=== PATIENT | male | born 1980 | race Hispanic/Latino ===

== ENCOUNTER 2020-02-16 11:49 | Inpatient (IN) | payer OTHER ==
--- NOTE | 2020-02-16 12:41 | RAD ---
EXAM: Two views chest PROVIDED CLINICAL HISTORY: 2 views chest COMPARISON: None FINDINGS: Cardiac silhouette is within normal limits. Increased interstitial and minimal patchy parenchymal den sities are seen throughout the lungs bilaterally. The osseous structures have a normal appearance. IMPRESSION: Bilateral increase in interstitial and patchy parenchymal densities. Findings are worrisome for infec tious process. Interstitial asymmetric interstitial edema is a possibility. Follow-up to complete resolution is recommended.
[2020-02-16] MEDS ORDERED: cefTRIAXone\\ROCEPHIN 2 GM VIAL ONE (13:03)
[2020-02-16] MEDS ORDERED: Azithromycin 500 MG VIAL ONE (13:03)
[2020-02-16 13:18] LABS: Hemoglobin 14.7 g/dL (14.0-18.0); Mean Corpuscular HGB CONC 33.1 g/dL (32.0-36.0); Mean Corpuscular Hemoglobin 28.6 pg (27.0-31.0); Mean Corpuscular Volume 86.4 fL (78.0-98.0); Mean Platelet Volume 8.3 fL (7.4-10.4); Platelet Count 227 thou/uL (130-400); RBC Distribution Width 11.6 % (11.5-14.5); Red Blood Cell (RBC) Count 5.14 mill/uL (4.70-6.10); White Blood Cell (WBC) Count 13.4 thou/uL (4.8-10.8)
[2020-02-16 13:35] LABS: ALT (SGPT) 340 U/L (8-55); AST (SGOT) 277 U/L (5-34); Albumin 4.3 g/dL (3.5-5.0); Alkaline Phosphatase 174 U/L (40-110); Anion Gap 15 mmol/L (10-20); BUN (Urea Nitrogen) 11 mg/dL (8.9-20.6); Bilirubin, Total 1.6 mg/dL (0.2-1.2); Calc. Creatinine Clearance 0 mL/min (70-130); Calcium 9.4 mg/dL (7.8-10.44); Carbon Dioxide 26 mmol/L (22-29); Chloride 100 mmol/L (98-107); Estimated GFR-MDRD 87; Globulin 3.8 g/dL (2.4-3.5); Glucose 119 mg/dL (70-105); Potassium 3.8 mmol/L (3.5-5.1); Protein, Total 8.1 g/dL (6.0-8.3); Sodium 137 mmol/L (136-145)
[2020-02-16 13:37] LABS: Band 24 % (5-11); Lymphocytes 9 % (21-51); MDiff Complete? YES; Metamyelocyte 1 % (0-0); Neutrophil 66 % (42-75); Platelet Morphology Comment Appears Adequate; RBC Morphology Normal
[2020-02-16] MEDS ORDERED: Hydroxychloroquine Sulfate 200 MG TAB PO SCH ×2 (13:45→21:00)
[2020-02-16 14:27] LABS: Bacteria/HPF None Seen HPF (None Seen); Bilirubin 1+ (Negative); Blood, Urine Negative (Negative); Clarity Clear (Clear); Glucose, Urine (Dipstick) Normal (Negative); Leukocyte Negative Leu/uL (Negative); Mucous/LPF Rare LPF (<2+); Nitrite Negative (Negative); Protein, Urine (Dipstick) 50 mg/dL (Neg-Trace); RBC/HPF 0-3 HPF (0-3); Squamous Epithelial None Seen HPF (0-3); WBC/HPF 0-3 HPF (0-3)
[2020-02-16 14:34] LABS: Sperm/HPF 1+ HPF (None Seen)
--- NOTE | 2020-02-16 15:06 | PDOC.FPRHP ---
- History of Present Illness Chief Complaint: cough History of Present Illness: Kranthi presents for fever and body aches for a week he reports that he began experiencing dyspnea and cough worsening today. fever and body aches hav been throughout this time. went to a clinic and was dx with URI and given anti-tussive medication, has not felt improved since. he has had some eye redness/itching and diarrhea. denies nausea, or vomiting, tolerating PO ok. no known sick contacts or travel hx. ED Course: azithro, plaquenil, rocephin 1L NS - Allergies/Adverse Reactions Allergies Allergy/AdvReac Type Severity Reaction Status Date / Time No Known Allergies Allergy Unverified 02/16/20 13:39 - History PMHx: none PSHx: none FHx: none Social: 10 pk year hx - Review of Systems General: reports: fever/chills, night sweats, fatigue Eyes: reports: other ENT: reports: nasal congestion, rhinorrhea Respiratory: reports: cough, shortness of breath Cardiovascular: denies: chest pain, palpitation Gastrointestinal: reports: diarrhea. denies: nausea, vomiting, constipation Genitourinary: denies: incontinence, dysuria Skin: denies: rashes, lesions, itching Musculoskeletal: denies: pain, tenderness Neurological: denies: numbness, syncope - Vital signs 139/84, Pulse: 115, Resp: 40, Temp: 98.3 (Oral), O2 sat: 96 on (Room Air) - Physical Exam Constitutional: NAD, other (obviously tachypneic) HEENT: normocephalic and atraumatic, grossly normal vision, grossly normal hearing Neck: trachea midline Chest: no-tender to palpation Heart: no edema Lungs: no respiratory distress, no retractions Abdomen: soft, non-tender Musculoskeletal: normal tone Neurological: no focal deficit, CN II-XII intact Skin: good turgor Heme/Lymphatic: no unusual bruising or bleeding Psychiatric: normal mood and affect FMR H&P: Results - Labs Result Diagrams: 02/16/20 13:03 02/16/20 13:03 Lab results: WBC 13.4 thou/uL (4.8-10.8) H 02/16/20 13:03 Hgb 14.7 g/dL (14.0-18.0) 02/16/20 13:03 Hct 44.4 % (42.0-52.0) 02/16/20 13:03 MCV 86.4 fL (78.0-98.0) 02/16/20 13:03 Plt Count 227 thou/uL (130-400) 02/16/20 13:03 Band Neuts % (Manual) 24 % (5-11) H 02/16/20 13:03 Sodium 137 mmol/L (136-145) 02/16/20 13:03 Potassium 3.8 mmol/L (3.5-5.1) 02/16/20 13:03 Chloride 100 mmol/L (98-107) 02/16/20 13:03 Carbon Dioxide 26 mmol/L (22-29) 02/16/20 13:03 BUN 11 mg/dL (8.9-20.6) 02/16/20 13:03 Creatinine 0.97 mg/dL (0.7-1.3) 02/16/20 13:03 Glucose 119 mg/dL (70-105) H 02/16/20 13:03 Lactic Acid 2.0 mmol/L (0.5-2.2) 02/16/20 13:03 Calcium 9.4 mg/dL (7.8-10.44) 02/16/20 13:03 Total Bilirubin 1.6 mg/dL (0.2-1.2) H 02/16/20 13:03 AST 277 U/L (5-34) H 02/16/20 13:03 ALT 340 U/L (8-55) H 02/16/20 13:03 Alkaline Phosphatase 174 U/L (40-110) H 02/16/20 13:03 Serum Total Protein 8.1 g/dL (6.0-8.3) 02/16/20 13:03 Albumin 4.3 g/dL (3.5-5.0) 02/16/20 13:03 Urine Ketones Negative mg/dL (Negative) 02/16/20 14:00 Urine Blood Negative (Negative) 02/16/20 14:00 Urine Nitrite Negative (Negative) 02/16/20 14:00 Ur Leukocyte Esterase Negative Vance/uL (Negative) 02/16/20 14:00 Urine RBC 0-3 HPF (0-3) 02/16/20 14:00 Urine WBC 0-3 HPF (0-3) 02/16/20 14:00 Ur Squamous Epith Cells None Seen HPF (0-3) 02/16/20 14:00 Urine Bacteria None Seen HPF (None Seen) 02/16/20 14:00 FMR H&P: A/P - Problem List (1) Sepsis Current Visit: Yes Status: Acute Code(s): A41.9 - SEPSIS, UNSPECIFIED ORGANISM (2) Bilateral pneumonia Current Visit: Yes Status: Acute Code(s): J18.9 - PNEUMONIA, UNSPECIFIED ORGANISM - Plan sepsis 2/2 b/l pna, bacterial vs viral, concerning for COVID19 - wbc with mild lymphopenia, elevated ddimer, transaminitis and b/l cxr findings - plaquenil, azithro, rocephin, continue these - RVP/COVID pending - monitor cbc/cmp/cxr - admit to IMCU for potential worsening clinical course - conservative fluid resuscitation, s/p 1L, PO hydrate for now. ppx: lovenox code: full dispo: admit to imcu for monitoring and potentially additional respiratory support Addendum - Attending - Attending Attestation Date/Time: 02/16/20 0310 I personally evaluated the patient and discussed the management with Dr. Gutierrez. I agree with the History, Examination, Assessment and Plan documented above with any addition or exceptions noted below. Patient here with 7 days of fevers and body aches, and now 2 days of dry cough and increasing shortness of breath. He reports nightly fevers with chills and sweats. He denies recent trauma or exposure to sick contacts. Patient noted to be tachypneic with no respiratory distress, RR 38. O2 sats 94% on room air. His exam is overall benign at this time but he does have mild conjunctivitis. Lung exam without wheezes at this time. CXR c/w bilateral infiltrates, concerning for infectious process. Labs show mild leukocytosis, left shift, lymphopenia, elevated AST/ALT. Normal lactate. Patient will be admitted to IMCU for bilateral pneumonia, suspect COVID. COVID swab pending. Isolation precautions. Continue CAP treatment and await cultures. CXR in AM. Conservative fluid hydration, and his vitals are currently normal. Continue supportive measures. PCT. Patient received Plaquenil in ED and will get one more dose of 400mg as anticipate he will be requiring O2 therapy in the coming hours. Conjuncivitis will continue to monitor but concern for viral process. No EtOH history, concern for viral process related to his liver enzyme elevations, will trend and perform basic workup to further evaluate. Further mgmt pending clinical status.
[2020-02-16] MEDS ORDERED: Acetaminophen 325 MG TAB ONE (16:37)
[2020-02-16] MEDS ORDERED: Acetaminophen 650 MG Suppository PR PRN (18:31)
[2020-02-16] MEDS ORDERED: Ondansetron PF 4 MG/2 ML Vial IVP PRN (18:31)
[2020-02-16] MEDS ORDERED: Ondansetron ODT 4 MG TAB PO PRN (18:31)
[2020-02-16 18:33] VITALS: BMI 25.2
[2020-02-16] MEDS: Enoxaparin Sodium 40 MG/0.4 ML SYRINGE SC SCH (21:23)
[2020-02-16] MEDS: Acetaminophen 325 MG TAB PO PRN (21:24)
[2020-02-16] MEDS: Hydroxychloroquine Sulfate 200 MG TAB PO SCH (21:24)
[2020-02-17 03:21] LABS: #Lymphocytes 1.2 thou/uL (1.20-3.40); #Monocytes 0.5 thou/uL (0.11-0.59); #Neutrophils 11.2 thou/uL (1.40-6.50); %Eosinophils 0.3 % (0.0-10.0); %Lymphocytes 8.9 % (21.0-51.0); %Monocytes 4.2 % (0.0-10.0); %Neutrophils 86.6 % (42.0-75.0); Hemoglobin 13.9 g/dL (14.0-18.0); Mean Corpuscular Hemoglobin 29.7 pg (27.0-31.0); Mean Corpuscular Volume 87.2 fL (78.0-98.0); Mean Platelet Volume 7.6 fL (7.4-10.4); Platelet Count 219 thou/uL (130-400); RBC Distribution Width 11.4 % (11.5-14.5)
[2020-02-17 03:48] LABS: ALT (SGPT) 220 U/L (8-55); AST (SGOT) 119 U/L (5-34); Albumin 3.7 g/dL (3.5-5.0); Alkaline Phosphatase 151 U/L (40-110); Anion Gap 15 mmol/L (10-20); BUN (Urea Nitrogen) 12 mg/dL (8.9-20.6); Bilirubin, Total 1.3 mg/dL (0.2-1.2); Calc. Creatinine Clearance 131 mL/min (70-130); Carbon Dioxide 23 mmol/L (22-29); Chloride 104 mmol/L (98-107); Estimated GFR-MDRD Greater than 90; Globulin 3.4 g/dL (2.4-3.5); Glucose 105 mg/dL (70-105); Potassium 3.9 mmol/L (3.5-5.1); Protein, Total 7.1 g/dL (6.0-8.3); Sodium 138 mmol/L (136-145)
[2020-02-17 04:06] LABS: HIV (1/2) Antibody/Antigen Non-Reactive (NonReactive); HIV 1/2 INDEX 0.17 S/CO (<1.00)
--- NOTE | 2020-02-17 06:46 | PDOC.FM ---
- Subjective Subjective: pt resting in bed, reports back pain and cough. denies sob - Objective Vital Signs & Weight: Vital Signs (12 hours) Temp 02/17/20 00:00 101.9 F H 02/16/20 20:00 100.9 F H Weight Weight 73.028 kg Most Recent Monitor Data Heart Rate from ECG 95 NIBP 127/79 NIBP BP-Mean 95 Respiration from ECG 26 SpO2 98 Result Diagrams: 02/17/20 02:58 02/17/20 03:30 Phys Exam - Physical Examination Constitutional: NAD HEENT: moist MMs Neck: no JVD Respiratory: clear to auscultation bilateral Cardiovascular: no significant murmur Gastrointestinal: no distention Musculoskeletal: no edema Neurological: moves all 4 limbs Psychiatric: normal affect Skin: no rash Dx/Plan (1) Sepsis Code(s): A41.9 - SEPSIS, UNSPECIFIED ORGANISM Status: Acute (2) Bilateral pneumonia Code(s): J18.9 - PNEUMONIA, UNSPECIFIED ORGANISM Status: Acute - Plan Plan: Sepsis 2/2 b/l pna, bacterial vs viral, concerning for COVID19 - on admission elevated wbc with mild lymphopenia, elevated ddimer, transaminitis and b/l cxr findings - plaquenil, azithro, rocephin - RVP/COVID pending - monitor cbc/cmp/cxr - txfr to medical - conservative fluid resuscitation ppx: lovenox code: full dispo: continue supportive care Addendum - Attending - Attending Attestation Date/Time: 02/17/20 1003 I personally evaluated the patient and discussed the management with Dr. Gutierrez. I agree with the History, Examination, Assessment and Plan documented above with any addition or exceptions noted below. Patient reports feeling stable. He continues to have increased RR, but denies dyspnea unless he is coughing. Advised that he speak with his roommates regarding social isolation until COVID testing is resulted as his case is highly suspicious. Continue isolation precautions. S/P 400mg Plaquenil BID dosing. He continues on CAP treatment for now. RVP negative. Stable for transfer to medical floor at this time but will need close eye on respiratory effort.
[2020-02-17] MEDS ORDERED: Lactated Ringer's 1,000 ML IV SCH ×2 (08:30)
[2020-02-17] MEDS ORDERED: Enoxaparin Sodium 40 MG/0.4 ML SYRINGE SC SCH (09:00)
[2020-02-17] MEDS: Acetaminophen 325 MG TAB PO PRN ×2 (09:03→13:55)
--- NOTE | 2020-02-17 09:35 | RAD ---
PORTABLE CHEST: Date: 02/17/2020 PROVIDED CLINICAL HISTORY: Pneumonia. FINDINGS: Comparison with 02/16/2020. Cardiac and mediastinal silhouette is within normal limits. Lungs are hypoinflated. Patchy bilateral air space disease is redemonstrated. No pleural fluid or pneumothorax apparent. IMPRESSION: Stable radiographic appearance of the chest. POS: NAVEED
[2020-02-17] MEDS ORDERED: cefTRIAXone\\ROCEPHIN 1 GM in Sodium Chloride 0.9% 100 ML IVPB SCH (13:00)
[2020-02-17] MEDS ORDERED: Azithromycin 500 MG in Sodium Chloride 0.9% 250 ML 250 ML IVPB SCH (14:00)
[2020-02-17] MEDS: Enoxaparin Sodium 40 MG/0.4 ML SYRINGE SC SCH (20:24)
[2020-02-17] MEDS: Hydroxychloroquine Sulfate 200 MG TAB PO SCH (20:24)
[2020-02-18 03:49] LABS: #Eosinphils 0.1 thou/uL (0.0-0.7); #Monocytes 0.6 thou/uL (0.11-0.59); #Neutrophils 7.3 thou/uL (1.40-6.50); %Eosinophils 0.6 % (0.0-10.0); %Monocytes 6.7 % (0.0-10.0); %Neutrophils 81.7 % (42.0-75.0); Hemoglobin 13.6 g/dL (14.0-18.0); Mean Corpuscular HGB CONC 32.8 g/dL (32.0-36.0); Mean Corpuscular Hemoglobin 28.8 pg (27.0-31.0); Mean Platelet Volume 8.2 fL (7.4-10.4); Platelet Count 246 thou/uL (130-400); RBC Distribution Width 11.6 % (11.5-14.5); Red Blood Cell (RBC) Count 4.71 mill/uL (4.70-6.10)
[2020-02-18 04:09] LABS: ALT (SGPT) 133 U/L (8-55); AST (SGOT) 52 U/L (5-34); Albumin 3.5 g/dL (3.5-5.0); Alkaline Phosphatase 134 U/L (40-110); Anion Gap 14 mmol/L (10-20); BUN (Urea Nitrogen) 13 mg/dL (8.9-20.6); Bilirubin, Total 0.7 mg/dL (0.2-1.2); Calc. Creatinine Clearance 144 mL/min (70-130); Calcium 8.9 mg/dL (7.8-10.44); Carbon Dioxide 22 mmol/L (22-29); Chloride 105 mmol/L (98-107); Estimated GFR-MDRD Greater than 90; Globulin 3.2 g/dL (2.4-3.5); Glucose 99 mg/dL (70-105); Potassium 3.9 mmol/L (3.5-5.1); Protein, Total 6.7 g/dL (6.0-8.3); Sodium 137 mmol/L (136-145)
--- NOTE | 2020-02-18 06:43 | PDOC.FM ---
- Subjective Subjective: no acute events overnight, observed through window still tachypneic, otherwise no apparent distress, O2 sats adequate - Objective Vital Signs & Weight: Vital Signs (12 hours) Temp 02/18/20 00:00 100 F H 02/17/20 20:00 100.4 F H Weight Weight 73.028 kg Most Recent Monitor Data Heart Rate from ECG 81 NIBP 120/82 NIBP BP-Mean 94 Respiration from ECG 46 SpO2 98 I&O: 02/16/20 02/17/20 02/18/20 06:59 06:59 06:59 Intake Total 480 3420 Output Total 800 1975 Balance -320 1445 Result Diagrams: 02/18/20 03:21 02/18/20 03:21 Dx/Plan (1) Sepsis Code(s): A41.9 - SEPSIS, UNSPECIFIED ORGANISM Status: Acute (2) Bilateral pneumonia Code(s): J18.9 - PNEUMONIA, UNSPECIFIED ORGANISM Status: Acute - Plan Plan: Sepsis 2/2 COVID19 - on admission elevated wbc with mild lymphopenia, elevated ddimer, transaminitis and b/l cxr findings - plaquenil, azithro, rocephin - RVP neg, COVID positive - monitor cbc/cmp/cxr - txfr to medical when available - conservative fluid resuscitation ppx: lovenox code: full dispo: continue supportive care
--- NOTE | 2020-02-18 08:16 | PDOC.FM ---
- Subjective Subjective: Patient feels somewhat improved. Scared about diagnosis of COVID19. Reports minimal cough, improved shortness of breath. Continues to have dyspnea on exertion even to restroom. Denies chest pain, abdominal pain. Reports appetite somewhat improved. - Objective MAR Reviewed: Yes Vital Signs & Weight: Vital Signs (12 hours) Temp 02/18/20 00:00 100 F H Weight Weight 73.028 kg Most Recent Monitor Data Heart Rate from ECG 81 NIBP 120/82 NIBP BP-Mean 94 Respiration from ECG 46 SpO2 98 I&O: 02/17/20 02/18/20 02/19/20 06:59 06:59 06:59 Intake Total 480 3420 Output Total 800 1975 Balance -320 1445 Result Diagrams: 02/18/20 03:21 02/18/20 03:21 EKG Reviewed by me: Yes (tele reviewed, NSR) Radiology Reviewed by me: Yes Phys Exam - Physical Examination Constitutional: NAD mild increased respiratory effort HEENT: moist MMs, sclera anicteric mild conjunctival injection, improved. Neck: no nodes, supple, full ROM Respiratory: no rales, no rhonchi, clear to auscultation bilateral limited exam due to disposable stethoscope, however, no major abnormalities noted. Cardiovascular: RRR, no significant murmur, no rub Gastrointestinal: soft, non-tender, no distention, positive bowel sounds Musculoskeletal: no edema, pulses present Neurological: non-focal, moves all 4 limbs Psychiatric: normal affect, A&O x 3 Skin: no rash, normal turgor, cap refill <2 seconds Dx/Plan (1) Sepsis Code(s): A41.9 - SEPSIS, UNSPECIFIED ORGANISM Status: Acute (2) Bilateral pneumonia Code(s): J18.9 - PNEUMONIA, UNSPECIFIED ORGANISM Status: Acute Qualifiers: Pneumonia type: due to unspecified organism Lung location: lower lobe of lung Qualified Code(s): J18.9 - Pneumonia, unspecified organism (3) COVID-19 virus infection Code(s): U07.1 - COVID-19 Status: Acute - Plan Plan: 1. Sepsis and Respiratory Distress 2/2 Bilateral Viral Pneumonia from COVID-19 -Patient with subjective improvement. Sats improved overall to high 90s on room air. Continues to have dyspnea on exertion. Advised increasing fluid hydration, increasing ambulation in the room. Will continue Azithromycin and Plaquenil to complete therapy. Anticipate he may be stable for discharge in the coming day or so. Extensive counselling on the nature of this disease, progression, improvement, need for social isolation until 3 days fever free, and to instruct his house-mates to socially isolate and prompt for testing upon first sign of illness.
[2020-02-18] MEDS: Azithromycin 250 MG in Sodium Chloride 0.9% 250 ML 250 ML IVPB SCH (10:13)
[2020-02-18] MEDS: Acetaminophen 325 MG TAB PO PRN (14:46)
[2020-02-18] MEDS: Hydroxychloroquine Sulfate 200 MG TAB PO SCH (19:46)
[2020-02-18] MEDS: Enoxaparin Sodium 40 MG/0.4 ML SYRINGE SC SCH (19:46)
[2020-02-19 03:46] LABS: #Eosinphils 0.1 thou/uL (0.0-0.7); #Lymphocytes 1.2 thou/uL (1.20-3.40); #Monocytes 0.6 thou/uL (0.11-0.59); #Neutrophils 6.1 thou/uL (1.40-6.50); %Basophils 0.1 % (0.0-1.0); %Eosinophils 1.7 % (0.0-10.0); %Lymphocytes 14.4 % (21.0-51.0); %Monocytes 7.4 % (0.0-10.0); %Neutrophils 76.4 % (42.0-75.0); Hemoglobin 14.5 g/dL (14.0-18.0); Mean Corpuscular HGB CONC 34.1 g/dL (32.0-36.0); Mean Corpuscular Hemoglobin 29.3 pg (27.0-31.0); Mean Corpuscular Volume 86.2 fL (78.0-98.0); Mean Platelet Volume 7.7 fL (7.4-10.4); Platelet Count 314 thou/uL (130-400); RBC Distribution Width 11.4 % (11.5-14.5); Red Blood Cell (RBC) Count 4.93 mill/uL (4.70-6.10)
[2020-02-19 04:06] LABS: ALT (SGPT) 162 U/L (8-55); AST (SGOT) 123 U/L (5-34); Albumin 3.6 g/dL (3.5-5.0); Alkaline Phosphatase 165 U/L (40-110); Anion Gap 15 mmol/L (10-20); BUN (Urea Nitrogen) 17 mg/dL (8.9-20.6); Bilirubin, Total 0.6 mg/dL (0.2-1.2); Calc. Creatinine Clearance 134 mL/min (70-130); Calcium 9.2 mg/dL (7.8-10.44); Carbon Dioxide 20 mmol/L (22-29); Chloride 105 mmol/L (98-107); Estimated GFR-MDRD Greater than 90; Globulin 3.7 g/dL (2.4-3.5); Glucose 104 mg/dL (70-105); Protein, Total 7.3 g/dL (6.0-8.3); Sodium 136 mmol/L (136-145)
[2020-02-19 05:04] VITALS: TEMP 98.8
[2020-02-19] MEDS: Azithromycin 250 MG in Sodium Chloride 0.9% 250 ML 250 ML IVPB SCH (09:04)
--- NOTE | 2020-02-19 09:05 | PDOC.FM ---
- Subjective Subjective: Pt reports feeling improved every day. No SOB at rest, pt feels that he starts coughing and feeling SOB on exertion. No new complaints or problems - Objective Vital Signs & Weight: Vital Signs (12 hours) Temp 02/19/20 04:00 98.8 F 02/18/20 23:41 99.2 F Weight Weight 73.028 kg Most Recent Monitor Data Heart Rate from ECG 72 NIBP 108/67 NIBP BP-Mean 80 Respiration from ECG 37 SpO2 99 I&O: 02/18/20 02/19/20 02/20/20 06:59 06:59 06:59 Intake Total 3420 940 Output Total 2697 1825 Balance 1445 -885 Result Diagrams: 02/19/20 03:25 02/19/20 03:25 Phys Exam - Physical Examination Constitutional: NAD HEENT: moist MMs, sclera anicteric Neck: supple, full ROM Respiratory: no wheezing, clear to auscultation bilateral Cardiovascular: RRR, no significant murmur Gastrointestinal: soft, non-tender Musculoskeletal: no edema, pulses present Neurological: normal sensation, moves all 4 limbs Psychiatric: normal affect, A&O x 3 Skin: no rash, normal turgor Dx/Plan (1) COVID-19 virus infection Code(s): U07.1 - COVID-19 Status: Acute (2) Bilateral pneumonia Code(s): J18.9 - PNEUMONIA, UNSPECIFIED ORGANISM Status: Acute Qualifiers: Pneumonia type: due to unspecified organism Lung location: lower lobe of lung Qualified Code(s): J18.9 - Pneumonia, unspecified organism (3) Sepsis Code(s): A41.9 - SEPSIS, UNSPECIFIED ORGANISM Status: Acute - Plan Plan: Sepsis 2/2 COVID19 A- stable on RA since admission. on admission elevated wbc with mild lymphopenia , elevated ddimer, transaminitis and b/l cxr findings. RVP neg, COVID positive. BCx negative P- plaquenil, azithro -DC rocephin -monitor cbc/cmp/cxr ppx: lovenox code: full dispo: continue supportive care, possibly home today Addendum - Attending - Attending Attestation Date/Time: 02/27/20 [id number] I personally evaluated the patient and discussed the management with Dr. Thompson on 02/19/20. I agree with the History, Examination, Assessment and Plan documented above with any addition or exceptions noted below. COVID stable respiratory status for d/c.
[2020-02-19 10:15] LABS: CRP (Inflammatory) 5.47 mg/dL (= or < 0.5); Magnesium 2.1 mg/dL (1.6-2.6); Phosphorus 3.3 mg/dL (2.3-4.7)
[2020-02-19] MEDS ORDERED: Hydroxychloroquine Sulfate 200 MG TAB PO SCH (13:15)
[2020-02-20] MEDS ORDERED: Azithromycin 250 MG TAB PO SCH (09:00)
--- NOTE | 2020-02-20 11:47 | DIS ---
DATE OF ADMISSION: 02/16/2020 DATE OF DISCHARGE: 02/19/2020 ADMITTING ATTENDING: Travis Clemens MD DISCHARGE ATTENDING: Isaiah Morales MD. RESIDENT: Isaiah Thompson MD. I personally saw the patient for 1 day. CONSULTS: None. PROCEDURES: 1. On 02/16/2020, chest x-ray. Impression, bilateral increase in interstitial and patchy parenchymal densities. Findings are worrisome for infectious process. Interstitial edema is a possibility. Followup to complete resolution is recommended. 2. On 02/17/2020, chest x-ray. Impression, stable radiographic appearance of the chest. MEDICATIONS: Discharge medications; 1. Acetaminophen 650 mg q.4 hours p.r.n. 2. Azithromycin 250 mg p.o. daily x1 day. 3. Hydroxychloroquine sulfate 200 mg p.o. b.i.d. x3 tablets. Discontinued medications, none. PRIMARY DIAGNOSIS: Sepsis secondary to COVID-19 infection. SECONDARY DIAGNOSIS: None. HISTORY OF PRESENT ILLNESS/HOSPITAL COURSE: This is a 39-year-old male, who presented to the emergency department with complaints of respiratory symptoms and was found to have COVID-19. The patient was admitted and placed under isolation precautions covid19 resulted positively, the patient was treated accordingly. The patient was treated with 4 days of azithromycin in the hospital and 4 days of Plaquenil in the hospital. Throughout his hospital stay, he had good oxygen saturations on room air alone. He was initially admitted to the [facility] for concern that he would deteriorate; however, the patient remained stable and was eventually discharged with extensive isolation precautions and instructions, of which the patient verbalized understanding. He was discharged with prescriptions to complete the 5-day azithromycin and hydroxychloroquine. Isolation precautions included the patient to self-isolate at home in his room until Wednesday, which will be 14 days after the first presentation of symptoms. The patient also was to remain in isolation until 72 hours if afebrile. Of note, the patient verbalized that he had 4 roommates in his home. They would not be able to move out while he was isolating, and therefore it was recommended to the patient that he stay in his room during this time and that he would have people bring him food to the door and then leave, so that no one would come in contact with him. He was also instructed to continue wearing his mask among other instructions that were given. The patient also received handout in Frisian, which was his primary language. The patient verbalized the urgency and need of his successful quarantine and displayed great motivation to do so. DISPOSITION: Stable. DISCHARGE INSTRUCTIONS: 1. Activity: As tolerated. 2. Diet: Regular. 3. Followup: Follow up with Dr. Jhony Ramon in 1 day via telephone visit and with [facility] in 2 to 3 weeks. Job ID: [id number] MTDD
--- NOTE | 2020-02-21 13:56 | EKG ---
Test Reason : Blood Pressure : / mmHG Vent. Rate : 119 BPM Atrial Rate : 119 BPM P-R Int : 144 ms QRS Dur : 082 ms QT Int : 314 ms P-R-T Axes : 032 -25 017 degrees QTc Int : 441 ms Sinus tachycardia Possible Left atrial enlargement RSR' or QR pattern in V1 suggests right ventricular conduction delay Left ventricular hypertrophy Inferior infarct , age undetermined Abnormal ECG Confirmed by TERRY DAWSON DO ([id number]), supervising film or videotape editor DALTON LIANG ([id number]) on 02/21/2020 1:55:32 PM Referred By: Confirmed By:TERRY DAWSON DO
== END 2020-02-19 17:03 | disposition home or self-care (01) | DRG 871 ==
LOC: ERS 11:49 → IMCU/EMU 15:23
PROVIDERS: ADMIT Student in an Organized Health Care Education/Training Program; ATTEND Student in an Organized Health Care Education/Training Program
PROC: 8E0ZXY6 Isolation (ICD-10-PCS; principal; 2020-02-16)
DX: A41.89 Other specified sepsis (principal); U07.1 COVID-19; J12.89 Other viral pneumonia; R06.03 Acute respiratory distress; Z87.891 Personal history of nicotine dependence; H10.9 Unspecified conjunctivitis
CPT/HCPCS: 36415; 71045; 71046; 80053; 81003; 81015; 82728; 83605; 83615; 83735; 84100; 84145; 85025; 85379; 86140; 87040; 87081; 87389; 87430; 87633; 87804; 90471; 90732; 93005; 96365; 96368; G0009; J0456; J0696; J1650; J3490; J7050; U0001